=== PATIENT | male | born 1960 | race Caucasian/White ===

== ENCOUNTER 2016-12-23 14:13 | Emergency (ER) | payer MEDICAID ==
[~2016-12-23] VITALS: Ht 185.4 cm; Wt 97.5 kg
== END 2016-12-23 16:40 | disposition short-term general hospital (02) ==
LOC: ER 14:13
DX: M54.5 Low back pain (principal); F10.129 Alcohol abuse with intoxication, unspecified; R79.89 Other specified abnormal findings of blood chemistry; E87.6 Hypokalemia; I10 Essential (primary) hypertension; D69.6 Thrombocytopenia, unspecified; Z86.19 Personal history of other infectious and parasitic diseases; J44.9 Chronic obstructive pulmonary disease, unspecified; F31.9 Bipolar disorder, unspecified; Z79.899 Other long term (current) drug therapy; F17.200 Nicotine dependence, unspecified, uncomplicated
CPT/HCPCS: G0477; G0480

== ENCOUNTER 2017-01-09 16:44 | Inpatient (IN) | payer MEDICAID ==
[~2017-01-09] VITALS: Ht 185.4 cm; Wt 98.1 kg
[2017-01-09] MEDS ORDERED: PROVENTIL2.5 MG/3 M INH (17:27)
[2017-01-09] MEDS ORDERED: HALFPRIN81 MG PO (17:27)
[2017-01-09] MEDS ORDERED: VENTOLIN HFA18 GM INH (17:27)
[2017-01-09] MEDS ORDERED: LOPRESSOR25 MG PO (17:28)
[2017-01-09] MEDS ORDERED: NEURONTIN100 MG PO (17:29)
[2017-01-09] MEDS ORDERED: FLEXERIL10 MG PO (17:29)
[2017-01-09] MEDS ORDERED: LASIX20 MG PO (17:29)
[2017-01-09] MEDS ORDERED: OXYCODONE HCL5 MG PO (17:48)
[2017-01-11] MEDS ORDERED: DUONEB 3.0-0.5 M3 ML INH (10:31)
[2017-01-11] MEDS ORDERED: PROVENTIL HFA6.7 GM INH (10:36)
[2017-01-11] MEDS ORDERED: KLOR-CON M2020 MEQ PO (10:38)
[2017-01-11] MEDS ORDERED: PRILOSEC20 MG PO (10:45)
[2017-01-11] MEDS ORDERED: LOMOTIL 0.025-21 TAB PO (10:45)
[2017-01-11] MEDS ORDERED: PULMICORT0.25 MG/1 INH (11:55)
== END 2017-01-11 13:45 | disposition short-term general hospital (02) | DRG 313 ==
LOC: ER 16:44 → RT 16:45 → ER 16:50 → IP 23:20 → ER 23:20 → IP 01-11 13:45
PROVIDERS: ADMIT Family Medicine
DX: R07.9 Chest pain, unspecified (principal); J44.9 Chronic obstructive pulmonary disease, unspecified; D69.6 Thrombocytopenia, unspecified; F41.9 Anxiety disorder, unspecified; F32.9 Major depressive disorder, single episode, unspecified; Z72.0 Tobacco use; E87.6 Hypokalemia; R73.9 Hyperglycemia, unspecified; B18.2 Chronic viral hepatitis C; I25.2 Old myocardial infarction
CPT/HCPCS: A9150; A9500; G0477; J1650; J2785; J8499; Q9963; Q9967